=== PATIENT | female | born 1995 | race African-American/Black ===

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

== ENCOUNTER 2017-08-11 21:25 | Emergency (ER) | payer SELFPAY ==
[~2017-08-11] VITALS: Ht 167.6 cm; Wt 71.0 kg
[~2017-08-11 21:25] MED LIST changes: +MACR100C2 PO; +PROZ20CA11 PO
[2017-08-11 21:36] VITALS: BP 134/89; PULSE 77; RESP 14; TEMP 98.7; O2SAT 99
[2017-08-11] MEDS ORDERED: PENI500T PO (22:00)
--- NOTE | 2017-08-11 22:00 | PD ---
HPI Chief Complaint: Oral / Dental Pain or Problem Time Seen by Provider: 21:47 Travel History International Travel<30 days: No Contact w/Intl Traveler<30days: No Traveled to known affect area: No History of Present Illness HPI This is a 22-year-old female who presents to the emergency department with right jaw pain and dental pain, constant, moderate severity with some swelling of her right face. She denies any fevers or chills. She denies any difficulty swallowing. Patient reports she knows she has a cavity but she is unable to get into a dentist until November. PFSH Past Medical History Medical History: Denies Significant Hx Asthma: Yes Blood Disorders: No Bipolar Disorder: Yes Anxiety: Yes Depression: Yes Cancer: No Cardiovascular Problems: No Chemotherapy: No COPD: No Endocrine: No Gastrointestinal Disorders: No Genitourinary: No Immune Disorder: No Implanted Vascular Access Dvce: No Musculoskeletal: No Neurologic: No Psychiatric: Yes Respiratory: Yes (asthma) Radiation Therapy: No Sleep Apnea: No Tetanus Vaccination: < 5 Years Influenza Vaccination: No ?: Not LMP: 07/22/17 Past Surgical History Surgical History: No Previous Surgery Other Surgery: No Social History Alcohol Use: No Tobacco Use: No Substance Use: No Allergies-Medications (Allergen,Severity, Reaction): Coded Allergies: No Known Allergies (Verified Adverse Reaction, Unknown, 08/11/17) Reported Meds & Prescriptions Reported Meds & Active Scripts Active No Active Prescriptions or Reported Medications Review of Systems General / Constitutional: No: Fever, Chills Cardiovascular: No: Chest Pain or Discomfort Respiratory: No: Cough Physical Exam Narrative GENERAL: Well-appearing, no acute distress, nontoxic SKIN: Warm and dry. HEAD: Atraumatic. Normocephalic. ENT: Right lower second molar has a large dental carry and is tender along the gumline Neck: No submental swelling or lymphadenopathy MUSCULOSKELETAL: No obvious deformities. No clubbing. No cyanosis. No edema. NEUROLOGICAL: Awake and alert. No obvious cranial nerve deficits. Motor grossly within normal limits. Normal speech. PSYCHIATRIC: Appropriate mood and affect; insight and judgment normal. Data Data Last Documented VS Vital Signs Date Time Temp Pulse Resp B/P (MAP) Pulse Ox O2 Delivery O2 Flow Rate FiO2 08/11/17 21:36 98.7 77 14 134/89 (104) 99 MDM Medical Decision Making Medical Screen Exam Complete: Yes Emergency Medical Condition: Yes Differential Diagnosis Dental caries, dental abscess, Italo's angina Narrative Course This is a 22-year-old female who presents to the emergency department with dental pain involving the right lower jaw. I suspect she has an early dental abscess. She is otherwise nontoxic appearing with no fever or sign of Italo's angina. She is appropriate for outpatient management with antibiotic therapy and she was given a list of dental resources. Diagnosis Primary Impression: Dental abscess Patient Instructions: General Instructions Additional Instructions: If you develop fever, increasing redness, warmth, or spreading of your infection , or severe pain return to the emergency department immediately as you may require antibiotics through your IV. Complete your course of antibiotics as prescribed. Med/Other Pt SpecificInfo: Prescription(s) given Scripts Penicillin V Potassium (Penicillin V Potassium) 500 Mg Tab 500 MG PO Q8H for Infection for 7 Days, #21 TAB 0 Refills Prov: Geneva Pelletier MD 08/11/17 Disposition: 01 DISCHARGE HOME Condition: Stable Geneva Pelletier MD August 11, 2017 22:00
[2017-08-11] MEDS ORDERED: NAPR500T2 PO (22:01)
== END 2017-08-11 22:22 | disposition home or self-care (01) ==
LOC: NEPD 21:25
DX: K04.7 Periapical abscess without sinus (principal); J45.909 Unspecified asthma, uncomplicated; F31.9 Bipolar disorder, unspecified; F41.9 Anxiety disorder, unspecified
CPT/HCPCS: 99283